=== PATIENT | male | born 1960 | race African-American/Black ===

== ENCOUNTER 2019-11-28 23:54 | Emergency (ER) | payer MEDICAID, OTHER ==
[~2019-11-28] VITALS: Ht 185.4 cm; Wt 90.7 kg
--- NOTE | 2019-11-28 23:54 | NUR ---
LOUISE PEREZ, PREBOOK. TAKEN TO CHAIR A
--- NOTE | 2019-11-29 00:05 | NUR ---
ERMD AT ASSESSING PT.
[2019-11-29 00:06] VITALS: BP 151/72
--- NOTE | 2019-11-29 00:10 | NUR ---
PT ASSESSED, TREATED, AND D/C BY ERMD. NO NURSING INTERVENTION NEEDED.
[2019-11-29 00:11] VITALS: BP 151/72
--- NOTE | 2019-11-29 00:11 | NUR ---
Patient discharged with v/s stable. Written and verbal after care instructions given and explained. Patient verbalized understanding. In custody with KEIRA PEREZ. All questions addressed prior to discharge. Advised to follow up with PMD.
== END 2019-11-29 00:11 ==
LOC: MED 23:54
DX: Z02.89 Encounter for other administrative examinations (principal)
CPT/HCPCS: 99283